=== PATIENT | female | born 1965 | race Caucasian/White ===

== ENCOUNTER 2016-09-10 17:33 | Emergency (ER) | payer BC ==
[2016-09-10 17:50] VITALS: BP 156/96
[2016-09-10] MEDS ORDERED: Tetan/Diph/Pertus SYR(Tdap)* 0.5 ML SYR(BOOSTRIX) use SYR IM ONE (18:00)
--- NOTE | 2016-09-10 18:19 | RAD ---
HISTORY: Right wrist injury COMPARISONS: None VIEWS: 4, Frontal, lateral, and oblique views of the right wrist FINDINGS: BONE DENSITY: Normal. BONES: There is a questionable nondisplaced fracture of the distal radial metaphysis. JOINTS: There is osteoarthritis of the first CMC joint ALIGNMENT: There is no dislocation. SOFT TISSUES: Unremarkable. OTHER FINDINGS: None. IMPRESSION: 1. QUESTIONABLE NONDISPLACED FRACTURE OF THE DISTAL RADIAL METAPHYSIS. 2. OSTEOARTHRITIS.
--- NOTE | 2016-09-10 18:35 | UC ---
Hand/Wrist HPI - HPI Summary HPI Summary: right wrist pain x 7 days injury to the right wrist as she slammed it to the book shelves + pain bruising and swelling also scrapped her left lower leg one day ago , requesting a TDAP - History Of Current Complaint Chief Complaint: UCUpperExtremity Stated Complaint: RT WRIST [id number] Time Seen by Provider: 09/10/16 17:49 Hx Obtained From: Patient Hx Last Menstrual Period: 2004 Onset/Duration: Sudden Onset, Lasting Days - 7, Still Present Severity Initially: Moderate Severity Currently: Moderate Character Of Pain: Aching Aggravating Factor(s): Movement, Lifting, Flexion, Extension Alleviating: Rest, Ice Associated Signs And Symptoms: Positive: Swelling, Bruising, Weakness - Allergies/Home Medications Allergies/Adverse Reactions: Allergies Allergy/AdvReac Type Severity Reaction Status Date / Time Sulfa Drugs Allergy Intermediate Hives Verified 09/10/16 17:50 PMH/Surg Hx/FS Hx/Imm Hx Previously Healthy: Yes - Surgical History Surgical History: Yes Surgery Procedure, Year, and Place: Partial Hysterectomy, 2004, [place] Sinus Surgery, 09/26/13, 02/2016 [facility]. Paraesophageal hernia repair, 05/2016 [facility] - Family History Known Family History: Positive: Hypertension - Social History Alcohol Use: Occasionally Substance Use Type: None Smoking Status (MU): Never Smoked Tobacco - Immunization History Most Recent Influenza Vaccination: Not the Season Most Recent Tetanus Shot: unknown Review of Systems Constitutional: Negative Skin: Negative Eyes: Negative ENT: Negative Musculoskeletal: Other: - right wrist pain All Other Systems Reviewed And Are Negative: Yes Physical Exam Triage Information Reviewed: Yes Appearance: Well-Appearing, No Pain Distress, Well-Nourished Vital Signs: Initial Vital Signs Temp 98.2 F 09/10/16 17:39 Pulse 115 09/10/16 17:39 Resp 16 09/10/16 17:39 BP 156/96 09/10/16 17:39 Pulse Ox 96 09/10/16 17:39 Vital Signs Reviewed: Yes Eyes: Positive: Conjunctiva Clear ENT: Positive: Normal ENT inspection, Hearing grossly normal, Pharynx normal Neck: Positive: Supple, Nontender, No Lymphadenopathy Respiratory: Positive: Chest non-tender, Lungs clear, Normal breath sounds Cardiovascular: Positive: No Murmur, Tachycardia Musculoskeletal: Positive: ROM Intact, Strength Limited @, Other: - right wrist : + swelling , ecchymosis, tender distal radius, good ROM on flexion and extension Skin: Positive: Other - + abrasion left lower leg + 5 cm Hand/Wrist Course/Dx - Differential Dx/Diagnosis Provider Diagnoses: fracture right wrist. abrastion right leg Discharge - Discharge Plan Condition: Stable Disposition: HOME Patient Education Materials: Wrist Fracture in Adults (ED) Referrals: Art Lucio MD [Medical Doctor] - As Soon As Possible Elan Graves [Primary Care Provider] - Additional Instructions: rest, ice, wrist splint follow up with ortho on Monday
== END 2016-09-10 18:40 | disposition home or self-care (01) ==
LOC: UCCORT 17:33
DX: S62.101A Fracture of unspecified carpal bone, right wrist, initial encounter for closed fracture (principal); S80.811A Abrasion, right lower leg, initial encounter; W22.8XXA Striking against or struck by other objects, initial encounter; Y92.9 Unspecified place or not applicable; Z88.2 Allergy status to sulfonamides
CPT/HCPCS: 90471; 90715; 99212; G0463

== ENCOUNTER 2017-08-16 08:35 | Emergency (ER) | payer BC ==
[2017-08-16 08:56] VITALS: BP 137/91
--- NOTE | 2017-08-16 09:41 | UC ---
Abdominal Pain Female HPI - HPI Summary HPI Summary: Right lower quadrant and right lower flank pain that has been random and intermittent for about 2 weeks. It will last about 40min at times. She denies fever, dysuria, hematuria, vaginal symptoms. She vomited today. No diarrhea. she is monogamous with . She has had hiatal hernia surgery, gall bladder and appendix surgery in the past. - History of Current Complaint Chief Complaint: UCGeneralIllness Stated Complaint: RT SIDE ABD PAIN Time Seen by Provider: 08/16/17 08:59 Hx Obtained From: Patient Hx Last Menstrual Period: 2004 Onset/Duration: Gradual Onset, Lasting Weeks Timing: Intermittent Episodes Lasting: Severity Initially: Moderate Severity Currently: Mild Pain Intensity: 0 Location: Discrete At: RLQ, Other - right lower flank. Radiates to: Back, Flank Character: Aching Aggravating Factor(s): Nothing Alleviating Factor(s): Nothing Associated Signs and Symptoms: Positive: Nausea, Vomiting. Negative: Fever, Cough, Chest Pain, Constipation, Blood in Stool, Urinary Symptoms, Vaginal Bleeding, Vaginal Discharge, Diarrhea Allergies/Adverse Reactions: Allergies Allergy/AdvReac Type Severity Reaction Status Date / Time Sulfa (Sulfonamide Allergy Intermediate Hives Verified 08/16/17 08:57 Antibiotics) Home Medications: Home Medications Omeprazole CAP* [Prilosec CAP* 20 MG] 20 mg PO DAILY 08/16/17 [History Confirmed 08/16/17] amLODIPine TAB* [Norvasc 5 mg TAB*] 5 mg PO DAILY 08/16/17 [History Confirmed ] PMH/Surg Hx/FS Hx/Imm Hx Previously Healthy: No - sinus disease. - Surgical History Surgical History: Yes Surgery Procedure, Year, and Place: Partial Hysterectomy, 2004, [facility]. Sinus Surgery, 09/26/13, 02/2016 [facility]. Paraesophageal hernia repair, 05/2016 [facility] - Family History Known Family History: Positive: Hypertension - Social History Alcohol Use: Occasionally Substance Use Type: None Smoking Status (MU): Never Smoked Tobacco - Immunization History Most Recent Influenza Vaccination: Not the 2014/2015 Season Most Recent Tetanus Shot: unknown Review of Systems ENT: Sinus Congestion, Sinus Pain/Tenderness Gastrointestinal: Abdominal Pain, Vomiting Genitourinary: Negative All Other Systems Reviewed And Are Negative: Yes Physical Exam Triage Information Reviewed: Yes Appearance: Well-Appearing, No Pain Distress, Well-Nourished Vital Signs: Initial Vital Signs Temp 97.8 F 08/16/17 08:52 Pulse 74 08/16/17 08:52 Resp 18 08/16/17 08:52 BP 137/91 08/16/17 08:52 Pulse Ox 100 08/16/17 08:52 Vital Signs Reviewed: Yes Eyes: Positive: Conjunctiva Clear. Negative: Conjunctiva Inflamed ENT: Positive: Normal ENT inspection, Pharynx normal, TMs normal, Sinus tenderness, Uvula midline. Negative: Tonsillar swelling, Tonsillar exudate, Trismus Neck: Positive: Supple, Nontender, No Lymphadenopathy. Negative: Nuchal Rigidity Respiratory: Positive: Lungs clear, Normal breath sounds, No respiratory distress, No accessory muscle use. Negative: Respiratory distress, Decreased breath sounds, Accessory muscle use, Crackles, Rhonchi, Stridor, Wheezing Cardiovascular: Positive: No Murmur, Pulses Normal Abdominal Exam: Other - right lower quadrant tenderness with deep palpation but no guarding. Abdomen Description: Positive: No Organomegaly, Soft. Negative: CVA Tenderness (R), CVA Tenderness (L), Distended, Guarding Musculoskeletal: Positive: Strength Intact, ROM Intact, No Edema Neurological: Positive: Alert, Muscle Tone Normal. Negative: Fatigued Psychological: Positive: Age Appropriate Behavior Skin: Negative: rashes Abd Pain Female Course/Dx - Course Course Of Treatment: She still appears comfortable and non toxic. She ambulates to CT without signs of pain. CT returns essentially normal with possible colitis with findings regarding the left colon but she denies diarrhea and no pain or tenderness there. We discussed options and DDX again and the next step is to get an ultrasound. She has no appendix or gall bladder. Urine is borderline on dip and she has no urinary symptoms. SHe has no fever or guarding to suggest PID and has no risk factors for STD. Symptoms have been intermittent for two. Weeks. Kidney and ureter on ct are unremarkable. She finally agrees to return for any new or worsening symptoms. - Differential Dx/Diagnosis Provider Diagnoses: pelvic pain. right lower flank pain Discharge - Sign-Out/Discharge Documenting (check all that apply): Discharge/Admit/Transfer - Discharge Plan Condition: Good Disposition: HOME Patient Education Materials: Flank Pain (ED), Abdominal Pain (ED) Referrals: [facility] Waldo,[facility] [Primary Care Provider] - 2 Days Additional Instructions: We will call you if urine culture shows bacterial infection. Return for any worsening symptoms. See your primary care doctor to arrange a pelvic ultrasound. - Billing Disposition and Condition Condition: GOOD Disposition: HOME
--- NOTE | 2017-08-16 10:52 | RAD ---
CLINICAL HISTORY: Right flank and right lower quadrant pain x2 weeks.Relevant surgical history includes partial hysterectomy and cholecystectomy. COMPARISON: Similar CT examination acquired September 24, 2012 TECHNIQUE: Noncontrast CT examination of the abdomen and pelvis from the lung bases through the initial tuberosities. FINDINGS: VISUALIZED LUNG BASES: The visualized lung bases are grossly clear. There is no pleural effusion. ABDOMEN AND PELVIS: Evaluation of the solid organs and vasculature is limited without intravenous contrast. There is a small stable hiatal hernia. The liver was homogenously hypodense relative to the spleen but otherwise normal in appearance. The spleen, pancreas and adrenal glands are grossly normal in appearance. The gallbladder is normal. The kidneys are normal in appearance without focal mass, calcification or signs of hydronephrosis. Evaluation of the gastrointestinal tract is limited without oral contrast. The small and large bowel are not distended. The appendix is not discretely visualized but there are no acute inflammatory changes in the right lower quadrant characteristic of acute appendicitis. There is questionable wall thickening of the distal colon beginning at the descending colon extending to the rectosigmoid junction. Bowel wall thickening measures up to possibly 6 mm. This appearance may simply be due to decompression. There is no definite pericolonic inflammatory change. There is no gross retroperitoneal or mesenteric lymphadenopathy. The pelvic viscera is normal in appearance. The abdominal aorta and iliac arteries are normal in course and diameter. Degenerative changes include multilevel loss of intervertebral disc height involving the lower thoracic and lumbar spine.There are no sinister bone lesions. IMPRESSION: 1. Questionable colitis involving the distal colon from the descending colon to rectosigmoid junction. Alternatively this appearance may simply be due to decompression and incomplete evaluation without oral contrast. 2. There are no renal calculi or signs of obstructive uropathy.
== END 2017-08-16 11:08 | disposition home or self-care (01) ==
LOC: UCCORT 08:35
DX: R10.2 Pelvic and perineal pain (principal); R10.31 Right lower quadrant pain; Z88.2 Allergy status to sulfonamides
CPT/HCPCS: 74176; 81003; 84702; 87086; 99211; G0463

== ENCOUNTER 2018-01-16 15:37 | Emergency (ER) | payer BC ==
[2018-01-16 16:30] VITALS: BP 146/99
--- NOTE | 2018-01-16 16:49 | UC ---
Throat Pain/Nasal Noah HPI - HPI Summary HPI Summary: Patient progressed with 7 days progressive sinus pressure. Patient also with right ear pain for the last 36 hours. Patient's been taking DayQuil, NyQuil, Mucinex without relief. Patient's out of her Flonase. Patient with history of recurrent sinus infections. Patient states this morning she woke with dental achiness. No fevers no chills. Patient states the right side of her face "hurts "no analgesia or antibiotics taken today. No rash. No chest pain or shortness of breath. No nausea vomiting or diarrhea. Patient has had surgery previously by Dr. Fortune. Patient's medications reviewed this visit. - History of Current Complaint Chief Complaint: UCRespiratory Stated Complaint: RIGHT EAR, SINUSES Time Seen by Provider: 01/16/18 16:30 Hx Obtained From: Patient Hx Last Menstrual Period: 2004 ?: No Onset/Duration: Lasting Minutes Severity: Moderate Pain Intensity: 4 - Allergies/Home Medications Allergies/Adverse Reactions: Allergies Allergy/AdvReac Type Severity Reaction Status Date / Time Sulfa (Sulfonamide Allergy Intermediate Hives Verified 01/16/18 16:26 Antibiotics) Home Medications: Home Medications Levothyroxine Sodium 1 tab DAILY 01/16/18 [History Confirmed 01/16/18] PMH/Surg Hx/FS Hx/Imm Hx - Additional Past Medical History Additional PMH: recurrent sinus Previously Healthy: Yes GI/ History: Other Other GI/ History: hiatal hernia - Surgical History Surgical History: Yes Surgery Procedure, Year, and Place: Partial Hysterectomy, 2005, [facility]. Sinus Surgery, 09/26/13, 02/2016 [facility]. Paraesophageal hernia repair, 05/2016 [facility] - Family History Known Family History: Positive: Hypertension - Social History Occupation: Employed Full-time Lives: With Family Alcohol Use: Weekly Alcohol Amount: "couple times a week" Substance Use Type: None Smoking Status (MU): Never Smoked Tobacco - Immunization History Most Recent Influenza Vaccination: Not the 2014/2015 Season Most Recent Tetanus Shot: UTD Review of Systems Constitutional: Fatigue Skin: Negative ENT: Ear Ache, Sinus Congestion, Sinus Pain/Tenderness All Other Systems Reviewed And Are Negative: Yes Physical Exam - Summary Physical Exam Summary: Vital Signs Reviewed: Yes A+Ox3, no distress, congested Eyes: Conjunctiva Clear, MARILOU. EOM intact and full ENT: Hearing grossly normal Right TM - bottom 1/3 obscurredby cerumen upper with eruythema, fluid left TM wnl max sinus tender R>L no frontal pain turbiantes inflammed and boggy + PND 2 clear, mmoist, uvula midline, no exudate , no erythema Neck: Positive: Supple, full AROM without difficulty or limitation Respiratory: Positive: No respiratory distress, No accessory muscle use + CTA throughout no w/r Cardiovascular: RRR nl s1, s2 no m/r CBT <2 sec abd soft + BS nt/nd no guarding, no distension Musculoskeletal Exam: SHAW x 4 without difficulty Strength Intact, ROM Intact Neurological: Positive: Alert, + sensation throughout Psychological: Positive: Normal Response To Family Skin: Positive: no rash, no ecchymosis Triage Information Reviewed: Yes Vital Signs: Initial Vital Signs Temp 97.9 F 01/16/18 16:27 Pulse 86 01/16/18 16:27 Resp 16 01/16/18 16:27 BP 146/99 01/16/18 16:27 Pulse Ox 99 01/16/18 16:27 Throat Pain/Nasal Course/Dx - Course Course Of Treatment: Pt with progressive head congestion now ith sinus pressure and right ear pain. exam c/w sinusitis and right OM. Augmentin. flonase. secretion precaution. motrin/apap. decongestant. return precaution. humidify air. pt states gets yeast infection with abx - Rx diflucan. BP slightly elevated - PCP f/u - Differential Dx/Diagnosis Provider Diagnoses: rhinosinusitis. right OM Discharge - Sign-Out/Discharge Documenting (check all that apply): Patient Departure All imaging exams completed and their final reports reviewed: No Studies - Discharge Plan Condition: Stable Disposition: HOME Prescriptions: Amoxicillin/Clavulanate TAB* [Augmentin TAB 875*] 875 mg PO BID #20 tab Fluconazole 150 MG (NF) [Diflucan 150 mg (NF)] 150 mg PO ONCE #1 tab Fluticasone NASAL SPRAY 50MCG* [Flonase NASAL SPRAY 50MCG*] 2 spray BOTH NARES DAILY #1 btl Patient Education Materials: Ear Infection (ED), Rhinosinusitis (ED) Referrals: Marisa MAYO,Elan Connelly [Primary Care Provider] - Additional Instructions: - Stay well hydrated. Drink plenty of non-alcoholic, non-caffinated beverages. - Alternate ibuprofen (Advil, Motrin) 600mg and Tylenol every 3 hours for pain or fever. Take with food. Do NOT take for more than 4-5 days. - These infections are spread by secretions - do NOT share eating or drinking utensils - clean items you share with other people such as cell phones, computer mouse, TV remote, computer tablets,etc. Once you have been antibiotics for 2 days, change your toothbrush and your pillowcase. - get plenty of restful sleep - humidify the air in the room where you sleep - boil water, run a hot steam shower, vaporizer, cups of water by heat register - okay to take over the counter decongestant and cough medication - use nasal spray as prescribed - contact your doctor or return with questions or concerns - Billing Disposition and Condition Condition: STABLE Disposition: Home
== END 2018-01-16 17:05 | disposition home or self-care (01) ==
LOC: UCCORT 15:37
DX: J32.9 Chronic sinusitis, unspecified (principal); H66.91 Otitis media, unspecified, right ear; R03.0 Elevated blood-pressure reading, without diagnosis of hypertension; Z88.2 Allergy status to sulfonamides
CPT/HCPCS: 99212; G0463

== ENCOUNTER 2018-01-19 07:54 | Emergency (ER) | payer BC ==
[2018-01-19 08:15] VITALS: BP 140/100
--- NOTE | 2018-01-19 08:37 | ED ---
Throat Pain/Nasal Congestion - HPI Summary HPI Summary: 52 yr old with ear infection, on Augmentin and has taken 6 doses. She has pain in right ear that worsened last night and radiates into the preauricular area and upper mandible. No dental pain. No fever or chills. No drainage from ears. No other complaints. - History of Current Complaint Chief Complaint: UCEar Time Seen by Provider: 01/19/18 08:22 - Allergies/Home Medications Allergies/Adverse Reactions: Allergies Allergy/AdvReac Type Severity Reaction Status Date / Time Sulfa (Sulfonamide Allergy Intermediate Hives Verified 01/19/18 08:12 Antibiotics) PMH/Surg Hx/FS Hx/Imm Hx Endocrine/Hematology History: Reports: Hx Thyroid Disease Cardiovascular History: Reports: Hx Hypertension - Surgical History Surgery Procedure, Year, and Place: Partial Hysterectomy, 2004, [facility]. Sinus Surgery, 09/26/13, 02/2016 [facility]. Paraesophageal hernia repair, 05/2016 [facility] Infectious Disease History: No Infectious Disease History: Denies: Traveled Outside the [place] in Last 30 Days - Family History Known Family History: Positive: Hypertension - Social History Occupation: Employed Full-time Alcohol Use: Weekly Alcohol Amount: "couple times a week" Substance Use Type: Reports: None Smoking Status (MU): Never Smoked Tobacco Review of Systems Constitutional: Negative Positive: Ear Ache All Other Systems Reviewed And Are Negative: Yes Physical Exam Triage Information Reviewed: Yes Vital Signs On Initial Exam: Initial Vitals Temp Pulse Resp BP Pulse Ox 98 F 74 15 140/100 99 01/19/18 08:10 01/19/18 08:10 01/19/18 08:10 01/19/18 08:10 01/19/18 08:10 Vital Signs Reviewed: Yes Appearance: Positive: Well-Appearing, No Pain Distress Skin: Positive: Warm, Skin Color Reflects Adequate Perfusion Head/Face: Positive: Normal Head/Face Inspection Eyes: Positive: EOMI ENT: Positive: TM red - right with retraction to TM.. Negative: Nasal drainage Dental: Positive: Other - no dental percussive tenderness, no abscess or mass on palpation of oral cavity. Neck: Positive: Supple, Nontender, No Lymphadenopathy Respiratory/Lung Sounds: Positive: Clear to Auscultation, Breath Sounds Present Cardiovascular: Positive: RRR. Negative: Murmur Abdomen Description: Positive: Nontender Musculoskeletal: Positive: Strength/ROM Intact Neurological: Positive: Sensory/Motor Intact, Alert, Oriented to Person Place, Time, CN Intact II-III, Normal Gait, Speech Normal Psychiatric: Positive: Normal Diagnostics - Vital Signs Vital Signs Temp Pulse Resp BP Pulse Ox 01/19/18 08:10 98 F 74 15 140/100 99 - Laboratory Lab Statement: Any lab studies that have been ordered have been reviewed, and results considered in the medical decision making process. EENT Course/Dx - Course Course Of Treatment: 52 yr old with otitis media. COntinue Augmentin. FU with Dr Fortune, ENT who has done her sinus surgeries. FU with PMD for BP recheck. - Diagnoses Provider Diagnoses: Otitis media, Hypertension Discharge - Sign-Out/Discharge Documenting (check all that apply): Patient Departure All imaging exams completed and their final reports reviewed: No Studies - Discharge Plan Condition: Good Disposition: HOME Patient Education Materials: Ear Infection (ED), Hypertension (ED) Forms: *Work Release Referrals: Marisa MAYO,Elan Connelly [Primary Care Provider] - 2 Days Miguel Fortune MD [Medical Doctor] - - Billing Disposition and Condition Condition: GOOD Disposition: Home
== END 2018-01-19 08:39 | disposition home or self-care (01) ==
LOC: UCCORT 07:54
DX: H66.91 Otitis media, unspecified, right ear (principal); I10 Essential (primary) hypertension; Z88.1 Allergy status to other antibiotic agents
CPT/HCPCS: 99211; G0463

== ENCOUNTER 2019-03-22 09:50 | Emergency (ER) | payer BC ==
[2019-03-22 11:33] VITALS: BP 142/97
[2019-03-22] MEDS ORDERED: Ondansetron ODT TAB* 4 MG SL ONE (11:49)
--- NOTE | 2019-03-22 12:23 | UC ---
Throat Pain/Nasal Noah HPI - HPI Summary HPI Summary: Patient is a 53-year-old female presenting with daughter for complaint of sinus congestion/pressure, earache, and nausea 3-4 days. Patient notes that sore throat headache began last night. Patient notes mild nonproductive cough. Denies shortness of breath and wheezing. Denies vomiting, diarrhea, and abdominal pain. Denies fevers, but notes chills and body aches. Patient states the last time she felt like this she had strep throat. - History of Current Complaint Chief Complaint: UCGeneralIllness Stated Complaint: SORE THROAT SINUS CONGESTION Hx Obtained From: Patient Hx Last Menstrual Period: n/a - hysterectomy Onset/Duration: Gradual Onset, Lasting Days Severity: Moderate Pain Intensity: 5 Pain Scale Used: 0-10 Numeric - Allergies/Home Medications Allergies/Adverse Reactions: Allergies Allergy/AdvReac Type Severity Reaction Status Date / Time Sulfa (Sulfonamide Allergy Intermediate Hives Verified 03/22/19 11:27 Antibiotics) Home Medications: Home Medications Acetaminophen [Tylenol] 2 tab PO ONCE 03/22/19 [History Confirmed 03/22/19] Guaifenesin/Dextromethorphan [Mucinex Fast-Max Dm Max Liquid] 1 dose PO ONCE [History Confirmed 03/22/19] PMH/Surg Hx/FS Hx/Imm Hx Cardiovascular History: Hypertension GI/ History: Gastroesophageal Reflux - Surgical History Surgical History: Yes Surgery Procedure, Year, and Place: Partial Hysterectomy, 2004, [facility]. Sinus Surgery, 09/26/13, 02/2016 [facility]. Paraesophageal hernia repair, 05/2016 [facility]. colonscopy 04/23/18. appendectomy. cholecystectomy - Family History Known Family History: Positive: Hypertension - Social History Alcohol Use: Weekly Alcohol Amount: "couple times a week" Substance Use Type: None Smoking Status (MU): Former Smoker When Did the Patient Quit Smoking/Using Tobacco: 1993 - Immunization History Most Recent Influenza Vaccination: Not the 2014/2015 Season Most Recent Tetanus Shot: UTD Review of Systems All Other Systems Reviewed And Are Negative: Yes Constitutional: Positive: Chills, Fatigue. Negative: Fever ENT: Positive: Sore Throat, Ear Ache - b/l, Sinus Congestion, Sinus Pain/ Tenderness - sinus pressure. Negative: Nasal Discharge Respiratory: Positive: Cough - mild nonproductive. Negative: Shortness Of Breath Cardiovascular: Positive: Negative Gastrointestinal: Positive: Nausea. Negative: Abdominal Pain, Vomiting, Diarrhea Musculoskeletal: Positive: Myalgia Neurological: Positive: Headache Physical Exam Triage Information Reviewed: Yes Appearance: No Pain Distress, Ill-Appearing Vital Signs: Initial Vital Signs Temp 99.5 F 03/22/19 11:28 Pulse 99 03/22/19 11:28 Resp 16 03/22/19 11:28 BP 142/97 03/22/19 11:28 Pulse Ox 99 03/22/19 11:28 Lab Results 03/22/19 03/22/19 Range/Units 12:41 12:43 Influenza A (Rapid) Negative (Negative) Influenza B (Rapid) Negative (Negative) Group A Strep Rapid Positive A (Negative) Vital Signs Reviewed: Yes Eyes: Positive: Conjunctiva Clear ENT: Positive: Hearing grossly normal, Pharyngeal erythema, Nasal congestion, TMs normal, Tonsillar swelling, Uvula midline. Negative: Nasal drainage, Tonsillar exudate, Sinus tenderness Neck exam: Normal Neck: Positive: Supple, Nontender, No Lymphadenopathy Respiratory Exam: Normal Respiratory: Positive: Lungs clear, Normal breath sounds, No respiratory distress, No accessory muscle use. Negative: Crackles, Rhonchi, Stridor, Wheezing Cardiovascular Exam: Normal Cardiovascular: Positive: RRR Neurological: Positive: Alert Psychological: Positive: Age Appropriate Behavior Skin Exam: Normal Throat Pain/Nasal Course/Dx - Course Course Of Treatment: Negative flu. Discussed positive rapid strep test with patient and treated with penicillin vk. Instructed to continue with symptomatic treatment and to follow up with pcp if symptoms persist. Patient voiced understanding and agreed with treatment plan. - Differential Dx/Diagnosis Differential Diagnosis/HQI/PQRI: URI Provider Diagnosis: Strep pharyngitis Discharge ED - Sign-Out/Discharge Documenting (check all that apply): Patient Departure All imaging exams completed and their final reports reviewed: No Studies - Discharge Plan Condition: Stable Disposition: HOME Prescriptions: Penicillin VK 500 MG TAB(NF) [Penicillin VK 500 mg Tab] 500 mg PO BID #20 tab Patient Education Materials: Strep Throat (ED) Forms: *Work Release Referrals: Mary Jane Mitchell PA [Primary Care Provider] - If Needed Additional Instructions: As discussed, you tested positive for strep throat today. Take penicillin as prescribed for the treatment of strep throat. You may take ibuprofen and/or tylenol as directed for fever and pain relief. You may use over the counter throat sprays or lozenges for symptomatic relief. Get plenty of rest and fluids. Follow up with your primary care provider if symptoms do not resolve within 10 days. - Billing Disposition and Condition Condition: STABLE Disposition: Home
[2019-03-22] MEDS ORDERED: Ibuprofen TAB* 600 MG PO ONE (12:25)
[2019-03-22 12:55] LABS: Influenza A Molecular NEGATIVE (Negative); Influenza B Molecular NEGATIVE (Negative)
== END 2019-03-22 13:08 | disposition home or self-care (01) ==
LOC: UCCORT 09:50
DX: J02.0 Streptococcal pharyngitis (principal); H92.03 Otalgia, bilateral; R09.81 Nasal congestion; I10 Essential (primary) hypertension; Z88.2 Allergy status to sulfonamides; Z87.891 Personal history of nicotine dependence
CPT/HCPCS: 87651; 99212; A9270-GY; G0463